=== PATIENT | male | born 2000 | race Caucasian/White ===

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

== ENCOUNTER 2018-09-03 15:02 | Emergency (ER) | payer BC ==
[~2018-09-03] VITALS: Wt 67.2 kg
[~2018-09-03 15:02] MED LIST changes: +CEPH-443 PO; +IBUP-1542 PO
[2018-09-03] MEDS ORDERED: IBUPROFEN 800 MG TAB PO ONE (16:00)
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
[2018-09-03] MEDS ORDERED: HYDR-4011 PO (16:35)
[2018-09-03 17:24] VITALS: BP 122/67; PULSE 77; RESP 18
== END 2018-09-03 17:25 | disposition home or self-care (01) ==
LOC: E/R 15:02
DX: S62.392A Other fracture of third metacarpal bone, right hand, initial encounter for closed fracture (principal); V49.40XA Driver injured in collision with unspecified motor vehicles in traffic accident, initial encounter